=== PATIENT | female | born 1985 | race Hispanic/Latino ===

== ENCOUNTER 2017-08-18 13:49 | Emergency (ER) | payer MEDICAID, BC ==
[2017-08-18 13:55] VITALS: RESP 18; TEMP 97.6
--- NOTE | 2017-08-18 14:33 | ED PDOC ---
HPI: Skin/Bite Injury Time Seen by Provider: 08/18/17 14:13 Chief Complaint (Nursing): Abnormal Skin Integrity Chief Complaint (Provider): Rash on bilateral legs History Per: Patient History/Exam Limitations: no limitations Onset/Duration Of Symptoms: Days Current Symptoms Are (Timing): Still Present Location Of Injury: Right: Leg, Left: Leg Severity: None Additional Complaint(s): 32 year old female presents to the emergency department with a rash to her bilateral legs. patient states that the rash initially started on her arms but that resolved and she now notices the rash on her legs. She states that the rash is associated with joint pain in her wrists and ankles. Denies throat pain , itching, new food, swimming. Of note: patient states that she has had stephanie fever in the past and th rash she currently has looks similar to the rashes she developed when she had the illness. Past Medical History Reviewed: Historical Data, Nursing Documentation, Vital Signs Vital Signs: Last Vital Signs Temp 97.6 F 08/18/17 13:52 Pulse 76 08/18/17 13:52 Resp 18 08/18/17 13:52 BP Pulse Ox 99 08/18/17 14:39 - Medical History PMH: No Chronic Diseases - Surgical History Surgical History: No Surg Hx - Family History Family History: States: Unknown Family Hx - Social History Current smoker - smoking cessation education provided: No Ex-Smoker (has not smoked in the last 12 months): No Alcohol: None Drugs: Denies - Home Medications Home Medications: Ambulatory Orders Medication Instructions Recorded Mupirocin 2% Ointment [Bactroban 0.5 gm EXT BID #1 tube 08/18/17 Ointment] - Allergies Allergies/Adverse Reactions: Allergies Allergy/AdvReac Type Severity Reaction Status Date / Time No Known Allergies Allergy Verified 08/18/17 13:51 Review of Systems Constitutional: Negative for: Fever, Chills Musculoskeletal: Positive for: Other (joint pain in ankles and wrist) Skin: Positive for: Rash (b/l lower extremities and chest wall) Physical Exam - Reviewed Nursing Documentation Reviewed: Yes Vital Signs Reviewed: Yes - Physical Exam Appears: Positive for: Non-toxic, No Acute Distress Skin: Positive for: Normal Color, Warm, Dry, Rash (multiple smal erythematous macular lesions to generalized lower extremities and chest wall) Eye Exam: Positive for: Normal appearance, EOMI, PERRL ENT: Positive for: Normal ENT Inspection (throat normal). Negative for: Nasal Congestion, Tonsillar Exudate, Tonsillar Swelling Cardiovascular/Chest: Positive for: Regular Rate, Rhythm, Chest Non Tender. Negative for: Tachycardia Respiratory: Positive for: Normal Breath Sounds. Negative for: Rales, Rhonchi, Wheezing, Respiratory Distress Neurologic/Psych: Positive for: Alert, Oriented, Gait - Laboratory Results Result Diagrams: 08/18/17 14:56 08/18/17 14:56 - ECG O2 Sat by Pulse Oximetry: 99 (RA) Pulse Ox Interpretation: Normal Medical Decision Making Medical Decision Makin Initial Impression 32 year old female presenting with rash to bilateral lower extremities Initial plan: * CMP * CBC * Rapid Strep group A antigen * Reevaluation - Documented by Diane Kat acting as a scribe for Zoe Clarke PA-C. All medical record entries made by the Scribe were at my direction and personally dictated by me. I have reviewed the chart and agree that the record accurately reflects my personal performance of the history, physical exam, medical decision making, and the department course for this patient. I have also personally directed, reviewed, and agree with the discharge instructions and disposition. Disposition - Clinical Impression Clinical Impression: Rash and nonspecific skin eruption - Patient ED Disposition Is Patient to be Admitted: No - Disposition Referrals: Devin Pickett MD [Staff Provider] - Disposition: Routine/Home Disposition Time: 16:07 Condition: FAIR Prescriptions: Mupirocin 2% Ointment [Bactroban Ointment] 0.5 gm EXT BID #1 tube Instructions: Skin Rash (DC) Forms: [employer] ([place])
[2017-08-18 15:03] LABS: BASO % 0.9 % (0.0-2.0); EOS # 0.1 K/uL (0.0-0.7); EOS % 2.6 % (0.0-4.0); HEMOGLOBIN 13.1 g/dL (12.0-16.0); LYMPH # 1.3 K/uL (1.0-4.3); LYMPH % 28.1 % (20.0-40.0); MEAN CELL VOLUME 94.5 fl (81.0-99.0); MEAN CORPUSCULAR HEMOGLOBIN 31.6 pg (27.0-31.0); MEAN CORPUSCULAR HGB CONC 33.5 g/dL (33.0-37.0); MEAN PLATELET VOLUME 8.7 fl (7.2-11.7); MONO # 0.5 K/uL (0.0-0.8); MONO % 11.5 % (0.0-10.0); NEUT # 2.6 K/uL (1.8-7.0); NEUT % 56.9 % (50.0-75.0); NRBC % 0.1 % (0.0-0.0); RBC 4.15 Mil/uL (3.80-5.20); RED CELL DISTRIBUTION WIDTH 12.6 % (11.5-14.5); WHITE BLOOD COUNT 4.5 K/uL (4.8-10.8)
[2017-08-18 15:51] LABS: ALB/GLOB RATIO 1.3 (1.0-2.1); ALBUMIN 3.9 g/dL (3.5-5.0); ALT/SGPT 26 U/L (9-52); AST/SGOT 54 U/L (14-36); BLOOD UREA NITROGEN 15 mg/dl (7-17); GFR NON-AFRICAN AMERICAN > 60
[2017-08-18 16:14] VITALS: BP 135/78; PULSE 67; O2SAT 100
== END 2017-08-18 16:15 | disposition home or self-care (01) ==
LOC: H.ER 13:49
DX: R21 Rash and other nonspecific skin eruption (principal); Z87.891 Personal history of nicotine dependence